=== PATIENT | female | born 1955 | race Caucasian/White ===

== ENCOUNTER 2023-04-08 05:00 | Day surgery (SDC) | payer OTHER, MEDICAID ==
[~2023-04-08] VITALS: Ht 157.5 cm; Wt 61.8 kg
[2023-04-08] MEDS ORDERED: SIMETHICONE 40 MG/0.6 ML ML ONE (07:28)
[2023-04-08] MEDS ORDERED: PROPOFOL 200MG/ 20ML VIAL (DIPRIVAN) IV ONE ×2 (07:38→08:02)
[2023-04-08] MEDS ORDERED: NS 1000 ML IV.SOLN IV ONE ×2 (07:38→08:02)
[2023-04-08] MEDS ORDERED: ONDANSETRON HCL 4 MG/2 ML VIAL ONE (08:02)
[2023-04-08] MEDS ORDERED: ePHEDrine sulfate 50 MG/ML VIAL ONE (08:02)
[2023-04-08 11:20] VITALS: BP_SYST 150
== END 2023-04-08 09:10 | disposition home or self-care (01) ==
LOC: SMU 05:00 → SDS 05:00
PROVIDERS: ATTEND Internal Medicine
DX: R12 Heartburn (principal); K29.70 Gastritis, unspecified, without bleeding; F32.A Depression, unspecified; F17.210 Nicotine dependence, cigarettes, uncomplicated; Z88.0 Allergy status to penicillin; Z79.899 Other long term (current) drug therapy
CPT/HCPCS: 43239; 71045; 87081; 36415; 88305; 88312; 88313; 93005; J2405; J2704; J7030